=== PATIENT | male | born 1995 | race Caucasian/White ===

== ENCOUNTER 2016-03-03 11:49 | Emergency (ER) | payer OTHER ==
[~2016-03-03] VITALS: Ht 167.6 cm; Wt 55.5 kg
[2016-03-03 11:52] VITALS: Ht 167.6 cm; Wt 55.5 kg
[2016-03-03] MEDS ORDERED: ACETAMINOPHEN 500 MG TAB PO STA (12:39)
[2016-03-03] MEDS ORDERED: LIDOCAINE 1% (MDV) 20 ML INJ SC ONE (13:00)
[2016-03-03] MEDS ORDERED: CEPH-443 PO (13:19)
[2016-03-03] MEDS ORDERED: BACTDS PO (13:19)
--- NOTE | 2016-03-03 15:07 | ERD ---
DATE OF SERVICE: 03/03/2016 HISTORY OF PRESENT ILLNESS: The patient 20-year-old male coming in complaining of abscess on his co ccyx for the last week. Patient states that he has had this intermittently over the last few years. He states it has gotten worse over the last week. He noticed a fever 4 days ago. He has not used any medications for this. Denies any abdominal pain, no change in bowel movements. Denies any vom iting. PAST MEDICAL HISTORY: Denies any other medical problems. ALLERGIES: DENIES ALLERGIES TO MEDICATIONS. PAST SURGICAL HISTORY: Denies. SOCIAL HISTORY: Smokes marijuana occasionally. REVIEW OF SYSTEMS: A 12-point review of systems was done. Refer to HPI for positives, all other sy stems negative. PHYSICAL EXAMINATION VITAL SIGNS: Temperature is 100.7, pulse 113, blood pressure is 109/64, respiratory 18, O2 sat 96% on room air. Pain intensity is 0/10. GENERAL: The patient is well-appearing, well-nourished, no acute distress. HEENT: Atraumatic. Conjunctivae are pink. Pupils equal, round, and reactive to light. There is no s cleral icterus. Tympanic membranes clear bilaterally. Oropharynx clear. No nystagmus or photophobia . CHEST: Clear to auscultation bilaterally. There are no rales, wheezes or rhonchi. HEART: Regular rate and rhythm. No murmurs, clicks, rubs or gallops. No S3 or S4. ABDOMEN: Soft, nontender and nondistended. Good bowel sounds. No rebound or guarding. No gross ritika tonitis. No gross organomegaly or masses. No Moran sign or McBurney point tenderness. SKIN: There is a fluctuant erythematous site noted on the coccyx region with no lymphatic streakin g. Mild tenderness to palpation. EMERGENCY ROOM COURSE: The site was cleaned with alcohol approximately 4 mL of plain lidocaine were injected into the site. A 2 cm linear laceration was made. Locules were broken up and copious amou nts of purulent discharge was extracted. Iodoform packing was placed and pressure dressing was appl ied. DIAGNOSIS: Pilonidal abscess. MEDICAL DECISION MAKING: I have low suspicion for deep tracking infection. Patient will be recomme nded to have close followup in the next 2 days to ensure that the abscess is not worsening. He is a lso told to have packing replaced in 2 days. The patient was recommended to return to the ER if sym ptoms change or worsen within that time frame. DISCHARGE: The patient is discharged stable. Patient given prescription for Bactrim and Keflex and told to return in 2 days. All other questions answered at time of discharge. Discharge summary gi kayla at the time of departure. Patient understood and complied with plan. Dictated By: RALEIGH DUARTE for JORJE EPMBERTON/AAMIR Conf#: [id number] DID#: [id number]
== END 2016-03-03 13:41 | disposition home or self-care (01) ==
LOC: FTE 11:49
DX: L05.01 Pilonidal cyst with abscess (principal)
CPT/HCPCS: 10081; Z7502; Z7610

== ENCOUNTER 2016-03-05 10:09 | Emergency (ER) | payer OTHER ==
[~2016-03-05] VITALS: Ht 165.1 cm; Wt 54.5 kg
[~2016-03-05 10:09] MED LIST: BACTDS PO; CEPH-443 PO
[2016-03-05 10:23] VITALS: Ht 165.1 cm; Wt 54.5 kg
--- NOTE | 2016-03-05 10:52 | ERD ---
ER Documentation Chief Complaint Date/Time DATE: 03/05/16 TIME: 10:43 Chief Complaint 2 day wound check,s/p i&d abscess HPI The patient is a 20-year-old male here for a wound check status post pilonidal abscess incision and drainage 2 days ago. Patient denies any excessive pain or increase in pain, fever, chills, nausea, vomiting, diarrhea, body aches, or any other flulike symptoms. Patient states that he has been taking his Bactrim and Keflex as prescribed without any side effects or problems. ROS All systems reviewed and are negative except as per history of present illness. Medications Home Meds Active Scripts Cephalexin* (Keflex*) 500 Mg Capsule, 500 MG PO QID for 7 Days, CAP Prov:KITTY GÓMEZ PA-C 03/03/16 Sulfamethoxazole-Trimethoprim* (Bactrim* DS) 800-160 Mg Tab, 1 TAB PO BID for 7 Days, TAB Prov:KITTY GÓMEZ PA-C 03/03/16 Allergies Allergies: Coded Allergies: No Known Allergy (Unverified , 03/05/16) PMhx/Soc Medical and Surgical Hx: pt denies Medical Hx, pt denies Surgical Hx Hx Alcohol Use: No Hx Tobacco Use: No Smoking Status: Never smoker Physical Exam Vitals Vital Signs Date Time Temp Pulse Resp B/P Pulse Ox O2 Delivery O2 Flow Rate FiO2 03/05/16 10:23 98.0 90 18 102/59 98 Physical Exam Const: No acute distress, nontoxic appearing Vital signs: Reviewed by me, afebrile, no tachycardia Head: Atraumatic Eyes: Normal Conjunctiva ENT: Normal External Ears, Nose and Mouth. Neck: Full range of motion..~ No meningismus. Resp: Clear to auscultation bilaterally Cardio: Regular rate and rhythm, no murmurs Abd: Soft, non tender, non distended. Normal bowel sounds Skin: + Packed and draining abscess near tip of the sacrum, no surrounding erythema, small induration at approximately between 10 and 12. No evidence of tracking or tunneling. Back: No midline or flank tenderness Ext: No cyanosis, or edema Neur: Awake and alert Psych: Normal Mood and Affect Procedures/MDM Nursing Notes Reviewed Previous Medical Records requested via [facility]. EMERGENCY DEPARTMENT COURSE / MEDICAL DECISION MAKING: The patient comes to the ED secondary to wound check of pilonidal abscess that was drained 2 days ago. Differential diagnosis upon initial evaluation includes but is not limited to: abscess, sepsis, and others. The patient was treated with wound care, cleansing with normal saline, packing, and dressing. Final impression: 1. Pilonidal abscess. 2. Wound check Based on patient's history of present illness and physical examination the decision was made to discharge. There is no evidence of life threatening injuries or illnesses at this time. As the patient is afebrile, with normal vital signs, and no flulike symptoms, increase in pain, with a benign physical exam, I have low suspicion for sepsis or worsening infection at this time. On re-examination, patient resting in no distress, stable vital signs, reports feeling fine and safe for discharge with a wound recheck here in 2 days. I instructed the patient to please follow-up with his primary care physician at [place] so that he may discuss the possibility of getting a consult to general surgery since he has had a pilonidal abscess twice now. Instructed the patient to please continue taking his Bactrim and Keflex as prescribed. He verbalized understanding and agree. Patient given return precautions. Patient verbalized understanding and agreed to return precautions. All of his questions and concerns were addressed prior to discharge. He agrees with plan of care. JOSE DILLARD NP Mar 05, 2016 10:52
== END 2016-03-05 11:24 | disposition home or self-care (01) ==
LOC: FTE 10:09
DX: Z48.01 Encounter for change or removal of surgical wound dressing (principal)
CPT/HCPCS: 99281

== ENCOUNTER 2016-03-08 15:12 | Emergency (ER) | payer OTHER ==
[~2016-03-08] VITALS: Wt 55.5 kg
--- NOTE | 2016-03-08 16:44 | ERD ---
ER Documentation Chief Complaint Date/Time DATE: 03/08/16 TIME: 16:43 Chief Complaint PT HERE FOR RECHECK ON ABCESS I&D HPI This 28-year-old male presents for recheck of a pilonidal incision and drainage performed presently 5 days ago. He is been here once for repacking. He denies fevers, vomiting, shortness breath or chest pain. He is taking antibiotics. ROS All systems reviewed and are negative except as per history of present illness. Medications Home Meds Active Scripts Cephalexin* (Keflex*) 500 Mg Capsule, 500 MG PO QID for 7 Days, CAP Prov:KITTY GÓMEZ PA-C 03/03/16 Sulfamethoxazole-Trimethoprim* (Bactrim* DS) 800-160 Mg Tab, 1 TAB PO BID for 7 Days, TAB Prov:KITTY GÓMEZ PA-C 03/03/16 Allergies Allergies: Coded Allergies: No Known Allergy (Unverified , 03/05/16) PMhx/Soc Hx Alcohol Use: No Hx Tobacco Use: No Physical Exam Vitals Vital Signs Date Time Temp Pulse Resp B/P Pulse Ox O2 Delivery O2 Flow Rate FiO2 03/08/16 15:17 99.0 67 18 107/49 98 Physical Exam Const: [] Alert, [id number]. Head: Atraumatic Eyes: Normal Conjunctiva ENT: Normal External Ears, Nose and Mouth. Neck: Full range of motion..~ No meningismus. Resp: Clear to auscultation bilaterally Cardio: Regular rate and rhythm, no murmurs Abd: Soft, non tender, non distended. Normal bowel sounds Skin: No petechiae or rashes there is a healing abscess which is packed in the pilonidal area. There is no Back: No midline or flank tenderness Ext: No cyanosis, or edema Neur: Awake and alert Psych: Normal Mood and Affect Procedures/MDM Gauze was removed and wound appears to be satisfactorily healing. We will not repack as it is improving. Wound was redressed. Patient will be discharged home with instructions to continue antibiotics, return for increased redness, swelling or fevers or with primary care doctor. Departure Diagnosis: Primary Impression: Abscess Condition: Stable Patient Instructions: Abscess, Incision And Drainage Additional Instructions: Continue antibiotics. Recheck only for increased redness, swelling, fevers. JULISA MESA MD Mar 08, 2016 16:44
== END 2016-03-08 16:52 | disposition home or self-care (01) ==
LOC: FTE 15:12
DX: Z48.01 Encounter for change or removal of surgical wound dressing (principal)
CPT/HCPCS: 99282